=== PATIENT | female | born 1970 | race Caucasian/White ===

== ENCOUNTER 2018-07-10 20:32 | Emergency (ER) | payer BC ==
--- OUTSIDE RECORDS SUMMARY | 2018-07-10 20:44 | XMS REPORT | Continuity of Care Document ---
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 Payers Date Identification Numbers Payment Provider Subscriber Policy Number: [id number] [facility] Oswaldo Back PayID: [id number] [address] [address] [place] [address] Advance Directives Description No Information Available Problems Date Description Provider Status Onset: 04/27/2010 Pure hypercholesterolemia Jc Rollins MD Active Onset: 04/01/2009 Intrinsic asthma without status Jc Rollins MD Active asthmaticus Onset: 03/17/2007 Acne Jc Rollins MD Active Onset: 09/10/2005 Allergic rhinitis Jc Rollins MD Active Onset: 02/29/2016 Pure hypercholesterolemia Jc Rollins MD Active Onset: 02/29/2016 Mild intermittent asthma Jc Rollins MD Active Onset: 02/29/2016 Fibromyalgia Jc Rollins MD Active Onset: 02/29/2016 Gastroesophageal reflux disease Jc Rollins MD Active Onset: 03/01/2017 Raynaud's disease Jc Rollins MD Active Family History Date Family Member(s) Observation Comments Father Hypercholesterolemia Father Hypertension Father Obesity Father Melanoma Father BCC Mother Hypercholesterolemia Mother Hypertension Mother Obesity Mother COPD Former smoker First Brother [place] SMALL [place] 31 Social History Type Date Description Comments Sex Unknown Marital Status 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 rash 04/27/2010 Doxycycline N/V Active N/V 09/19/2004 Erythromycin Active GI 09/19/2004 Hydrocodone Active Medications Medication Date Status Form Strength Qnty SIG Indications Ordering Provider Sulfamethoxazole 06/24 Active Tablets 800-160mg 20tab 1 by mouth J06.9 Digiovann /Trimethoprim /2018 s every 12 a, hours for Marylou, 10 days RIVET STICKER Advair HFA 04/23 Active Aerosol 115-21mcg 12uni inhale 2 J45.20 Digiovann /2017 /Act ts puffs twice a, a day Rinse Yael Greene After MD Use Nifedipine ER 03/01 Active Tablets ER 30mg 30tab 1 Pill By I73.00 Digiovann 24HR s Mouth Each Shellie montez, During winter Loratadine 03/01 Active Capsules 10mg OTC 1 by mouth J30.9 Digiovann every day Jc montez MD Azelastine HCL 10/19 Active Solution 0.1% 3unit 2 sprays J30.9 Digiovann (Nasal) s each a, nostril Jc, twice a day Pro HFWesley 11/17 Active Aerosol 108(90Bas 1unit 2 puffs J45.20 Digiovann e) s every 3 a, mcg/Act hours as reese Greene for MD asthma Fluticasone 05/24 Active Suspension 50mcg/Act 16uni 1 spray in J30.9 Digiovann Propionate ts each nare a, twice a day MD Jc Acidophilus 11/17 Active Capsules OTC 4-5 qd as Digiovann High-Potency directed Jc montez MD Naproxen 04/05 Active Tablets 500mg 180ta take 1 M79.7 Digiovann bs tablet by a, mouth twice Jc, a day as needed for fibromyalgi a - take w/ food Cyclobenzaprine 09/28 Active Tablets 10mg 90tab take 1 M79.7 Digiovann HCL /2009 s tablet by a, mouth every Jc, evening as MD needed for muscle tightness Zantac 150 00/00 Active Tablets 150mg 1 by mouth R12 Unknown Maximum Strength /0000 twice a day K21.9 Levofloxacin Hx Tablets 250mg 10tabs 1 pill by mouth J01.90 Digiovann 018 - once daily for a, 10 days Jc, 018 Fluconazole Hx Tablets 150mg 2tabs 1 pill once a Digiovann 018 - day for 2 days a, Jc, 019 Cefdinir Hx Capsules 300mg 20caps 1 Pill Twice A Digiovann 018 - Day For 10 Days a, Jc, 018 Prednisone Hx Tablets 20mg 10tabs 1 pill by mouth R05 Digiovann 018 - twice a day with a, food for 5 days Jc, 018 Sulfamethoxazole/Tri Hx Tablets 800-160 14tabs 1 by mouth twice J01.90 Digiovann methoprim DS 018 - mg a day for 7 days a, Jc, 018 Fluconazole Hx Tablets 150mg 1tabs 1 tablet by J01.90 Digiovann 018 - mouth x 1 a, Jc, 018 Sulfamethoxazole/Tri Hx Tablets 800-160 20tabs 1 by mouth twice Digiovann methoprim DS 018 - mg a day for 10 a, days Jc, 018 Fluconazole Hx Tablets 150mg 1tabs 1 pill by mouth Digiovann 018 - once a, Jc, 018 Sulfamethoxazole/Tri Hx Tablets 800-160 20tabs 1 by mouth twice Digiovann methoprim DS 017 - mg a day for 10 a, days Jc, 017 Cefuroxime Axetil Hx Tablets 250mg 20tabs 1 pill by mouth J01.90 Digiovann 017 - twice a day a, for 10 days Marita Greene MD Fluconazole Hx Tablets 150mg 2tabs 1 pill by mouth J01.90 Digiovann 017 - once as a, directed, repeat Jc, 017 as needed for MD yeast symtoms Azithromycin Hx Tablets 250mg 6tabs 2 pills by mouth J01.90 Digiovann 016 - day 1, then 1 a, pill once daily JcCelestine granado for 4 more days (take w/ food) Sulfamethoxazole/Tri Hx Tablets 800-160 20tabs 1 by mouth twice N30.00 Digiovann methoprim DS 015 - mg a day for 10 a, days Frantz Greene MD Fluconazole Hx Tablets 150mg 2tabs 1 pill once by Digiovann 015 - mouth for yeast a, infection Frantz Greene MD Shireen Allergy Hx Tablets 180mg 30tabs 1 by mouth qod 477.9 Digiovann 015 - a, JcCelestine granado MD Tagamet HB Hx Tablets 200mg OTC 1 by mouth every 787.1 Digiovann 015 - day a, Nkechi Greene MD K21.9 Fluconazole 09/10/2014 - Hx Tablets 100mg 10tabs 1 Pill Once A Digiovanna, 09/20/2014 Day By Mouth MD Jc For 10 Days Levofloxacin 07/27/2014 - Hx Tablets 500mg 10tabs 1 by mouth 46 Digiovanna, 08/06/2014 daily for 10 1. Marylou, RIVET STICKER days 9 Fluconazole 07/27/2014 - Hx Tablets 150mg 1tabs 1 by mouth Digiovanna, 07/28/2014 one time Marylou, RIVET STICKER Levofloxacin 07/12/2014 - Hx Tablets 500mg 10tabs 1 by mouth 46 Digiovanna, 07/22/2014 daily for 10 1. Marylou, RIVET STICKER days 9 Fluconazole 07/12/2014 - Hx Tablets 150mg 1tabs 1 by mouth Digiovanna, 07/19/2014 one time Marylou, MARJORIE Nifedipine ER 05/24/2014 - Hx Tablets ER 30mg 30tabs 1 Pill By 44 Digiovanna, 08/18/2013 24HR Mouth Each 3. MD Shellie Greene During 0 Winter Months Loratadine 11/16/2013 - Hx Tablets 10mg 1 by mouth 47 Digiovanna, 02/29/2016 qod as needed 7. Jc Reed MD allergies 9 Astelin 06/08/2011 - Hx Solution 137mcg/ 3Month use 2 sprays J3 Digiovanna, 10/19/2016 Ross twice a day 0. MD Jc into each 9 nostril if needed for allergies Ziana 03/13/2011 - Hx Gel 1.2-0.0 Tangoren, 07/12/2014 25% MD Maryam Hydrocortisone 06/14/2009 - Hx Cream 2.5% 1Tube Apply pr qid Digiovanna, 07/12/2014 prn Jc Reed MD hemorrhoids Lactinex - Hx Tablets 90units 1 PO qd Digiovanna, Repack 02/17/2014 Jc Reed MD Claritin - Hx Capsules 10mg OTC 1 by mouth J3 Unknown 03/01/2017 every day 0. 9 Immunizations CPT Code Status Date Vaccine Lot # [id number] Given 03/19/2018 Tdap (Adacel) Ages 7 And Above Only [id number] Given 02/19/2018 Afluria Imunization 99673 Given 01/31/2008 Tetanus And Diptheria Toxoids For Adult Use-preservative free 77590 Given 10/30/1996 Tetanus And Diptheria Toxoids For Adult Use-preservative free 76960 Given 06/17/1981 Tetanus And Diptheria Toxoids For Adult Use-preservative free Vital Signs Date Vital Result Comment 06/24/2018 1:10pm Body Temperature 98.8 F tympanic Weight 175.00 lb Heart Rate 84 /min BP Systolic 130 mmHg BP Diastolic 70 mmHg Respiratory Rate 18 /min Height 64.5 inches 5'4.50" O2 % BldC Oximetry 100 % Room Air BMI (Body Mass Index) 29.6 kg/m2 04/23/2018 9:42am Weight 177.00 lb With Shoes Heart Rate 82 /min BP Systolic 120 mmHg BP Diastolic 80 mmHg 03/19/2018 12:58pm Weight 171.00 lb Heart Rate 76 /min BP Systolic 120 mmHg BP Diastolic 80 mmHg Respiratory Rate 18 /min Height 64.5 inches 5'4.50" O2 % BldC Oximetry 97 % rest O2 Saturation Level with Exercise 96 % walking BMI (Body Mass Index) 28.9 kg/m2 02/20/2018 1:37pm Weight 166.00 lb Heart Rate 80 /min BP Systolic 142 mmHg BP Diastolic 90 mmHg BP Systolic Recheck 134 mmHg BP Diastolic Recheck 86 mmHg Respiratory Rate 18 /min Height 64.5 inches 5'4.50" BMI (Body Mass Index) 28.1 kg/m2 03/01/2017 8:07am Weight 160.00 lb Heart Rate 72 /min BP Systolic 120 mmHg BP Diastolic 76 mmHg Respiratory Rate 18 /min Height 64.5 inches 5'4.50" BMI (Body Mass Index) 27.0 kg/m2 02/29/2016 8:23am Weight 158.00 lb Heart Rate 74 /min BP Systolic 120 mmHg BP Diastolic 80 mmHg Respiratory Rate 18 /min Height 64 inches 5'4" BMI (Body Mass Index) 27.1 kg/m2 03/01/2015 4:12pm Body Temperature 98.8 F Weight 162.00 lb Heart Rate 68 /min BP Systolic 122 mmHg BP Diastolic 80 mmHg Respiratory Rate 18 /min Height 64 inches 5'4" BMI (Body Mass Index) 27.8 kg/m2 11/17/2014 8:20am Weight 173.00 lb Heart Rate 66 /min BP Systolic 134 mmHg R/Reg BP Diastolic 84 mmHg R/Reg BP Systolic Recheck 118 mmHg L at rest BP Diastolic Recheck 72 mmHg L at rest Respiratory Rate 16 /min Height 64 inches 5'4" BMI (Body Mass Index) 29.7 kg/m2 07/12/2014 4:14pm Body Temperature 98.8 F Weight 174.25 lb Heart Rate 76 /min BP Systolic 136 mmHg BP Diastolic 74 mmHg Respiratory Rate 18 /min O2 % BldC Oximetry 100 % Ra 11/16/2013 8:21am BP Systolic 118 mmHg L at rest BP Diastolic 70 mmHg L at rest 11/16/2013 8:21am Weight 170.00 lb Heart Rate 84 /min BP Systolic 138 mmHg R/Reg BP Diastolic 82 mmHg R/Reg Respiratory Rate 19 /min Height 64.25 inches 5'4.25" Results Test Date Facility Test Result H/L Range Note Lipid 03/19/2018 [facility] Cholesterol 215 mg/dL High 50-199 Triglycerides 96 mg/dL 30-200 HDL 67 mg/dL 35-85 1 Chol/ HDL Ratio 3.2 ratio Low 3.7-5.6 VLDL 19 mg/dL 2-29 LDL (Calc) 129 mg/dL High 20-99 2 Comprehensive Met Panel-[facility]CMG 03/19/2018 [facility] Sodium 131 mmol/L Low 135 -146 3 Potassium 4.5 mmol/L 3.5-5.2 Chloride# 97 mmol/L 97-110 4 Carbon Dioxide 26 mmol/L 24-34 Glucose 87 mg/dL 70-105 BUN 14 mg/dL 6-26 Creatinine 0.6 mg/dL 0.5-1.4 Calcium 9.3 mg/dL 8.5-10.2 Total Protein 6.3 g/dL 6.0-8.0 Albumin 4.3 g/dL 3.6-4.9 Globulin 2.0 g/dL 2.0-3.5 A/G Ratio 2.2 Ratio 1.0-2.2 Total Bilirubin 0.7 mg/dL 0.1-1.3 Alkaline Phosphatase 52 U/L 24-140 Alt 14 U/L 3-42 Ast 15 U/L 8-42 Karen Egfr >60 >60 5 Non Karen Egfr >60 >60 6 Anion Gap 8 mmol/L 5-15 7 CBC with Auto Diff-fcmg 03/19/2018 [facility] WBC 5.5 K/uL 4.1-11.0 RBC 4.67 M/uL 4.00-5.40 Hemoglobin 13.7 gm/dL 12.0-16.0 Hematocrit 40.7 % 36.0-47.0 MCV 87.0 fL 80.0-97.0 MCH 29.4 pg 27.0-32.0 MCHC 33.8 g/dL 32.0-36.0 RDW 14.6 % High 11.5-14.5 PLT Count 391 K/ul 140-400 MPV 6.6 FL Low 7.1-10.7 Neutrophil 60.8 % 35.0-75.0 Lymphocyte 25.7 % 16.0-52.0 Monocyte 7.2 % 2.0-10.0 Eosinophil 5.4 % High 0.0-5.0 Basophil 0.9 % 0.0-4.0 Abs Neutrophils 3.3 K/uL 2.1-8.0 Abs Lymphocytes 1.4 K/uL 0.8-5.5 Abs Monocytes 0.4 K/uL 0.1-1.0 Abs Eosinophils 0.3 K/uL 0.0-0.5 Abs Basophils 0.1 K/uL 0.0-0.3 Laboratory test finding 02/20/2018 [facility] D-Dimer,Sensitive 0.30 mg/L ( <0.50) 8 Comprehensive Met 03/01/2017 [facility] Sodium 142 mmol/L 135-146 9 Panel-FCMG Potassium 4.2 mmol/L 3.5-5.2 Chloride# 107 mmol/L 97-110 10 Carbon Dioxide 28 mmol/L 24-34 Glucose 82 mg/dL 70-105 Creatinine 0.7 mg/dL 0.5-1.4 Calcium 9.3 mg/dL 8.5-10.2 Total Protein 6.5 g/dL 6.0-8.0 Albumin 4.2 g/dL 3.6-4.9 Globulin 2.3 g/dL 2.0-3.5 A/G Ratio 1.8 Ratio 1.0-2.2 Total Bilirubin 0.4 mg/dL 0.1-1.3 Alkaline Phosphatase 49 U/L 24-140 Alt 14 U/L 3-42 Ast 16 U/L 8-42 Karen Egfr >60 >60 11 Non Karen Egfr >60 >60 12 Anion Gap 7 mmol/L 7-16 13 BUN 11 mg/dL 6-26 Lipid 03/01/2017 [facility] Cholesterol 169 mg/dL 50-199 Triglycerides 85 mg/dL 30-200 HDL 59 mg/dL 35-85 14 Chol/ HDL Ratio 2.9 ratio Low 3.7-5.6 VLDL 17 mg/dL 2-29 LDL (Calc) 93 mg/dL 20-99 15 CBC With Auto Diff 03/01/2017 [facility] WBC 5.8 K/uL 4.1-11.0 RBC 4.34 M/uL 4.00-5.40 Hemoglobin 13.2 gm/dL 12.0-16.0 Hematocrit 38.8 % 36.0-47.0 MCV 89.3 fL 80.0-97.0 MCH 30.5 pg 27.0-32.0 MCHC 34.1 g/dL 32.0-36.0 RDW 14.4 % 11.5-14.5 PLT Count 396 K/ul 140-400 MPV 6.5 FL Low 7.1-10.7 Neutrophil 54.8 % 35.0-75.0 Lymphocyte 31.4 % 16.0-52.0 Monocyte 6.9 % 2.0-10.0 Eosinophil 5.8 % High 0.0-5.0 Basophil 1.1 % 0.0-4.0 Abs Neutrophils 3.2 K/uL 2.1-8.0 Abs Lymphocytes 1.8 K/uL 0.8-5.5 Abs Monocytes 0.4 K/uL 0.1-1.0 Abs Eosinophils 0.3 K/uL 0.0-0.5 Abs Basophils 0.1 K/uL 0.0-0.3 Lipid Treatment 02/29/2016 [facility] Cholesterol 172 mg/dL 50-199 Triglycerides 76 mg/dL 30-200 HDL 53 mg/dL 35-85 16 Chol/ HDL Ratio 3.2 ratio Low 3.7-5.6 VLDL 15 mg/dL 2-29 LDL (Calc) 104 mg/dL High 20-99 17 Alt 14 U/L 3-42 Ast 16 U/L 8-42 CBC With Auto Diff 02/29/2016 [facility] WBC 4.9 K/uL 4.1-11.0 RBC 4.41 M/uL 4.00-5.40 Hemoglobin 13.5 gm/dL 12.0-16.0 Hematocrit 39.0 % 36.0-47.0 MCV 88.5 fL 80.0-97.0 MCH 30.7 pg 27.0-32.0 MCHC 34.7 g/dL 32.0-36.0 RDW 13.8 % 11.5-14.5 PLT Count 365 K/ul 140-400 Neutrophil 50.6 % 35.0-75.0 Lymphocyte 33.9 % 16.0-52.0 Monocyte 9.6 % 2.0-10.0 Eosinophil 5.0 % 0.0-5.0 Basophil 0.9 % 0.0-4.0 Abs Neutrophils 2.5 K/uL 2.1-8.0 Abs Lymphocytes 1.7 K/uL 0.8-5.5 Abs Monocytes 0.5 K/uL 0.1-1.0 Abs Eosinophils 0.2 K/uL 0.0-0.5 Abs Basophils 0.0 K/uL 0.0-0.3 Basic (BMP) 02/29/2016 [facility] Sodium 135 mmol/L 134-142 Potassium 4.5 mmol/L 3.5-5.2 Chloride 104 mmol/L 97-109 Carbon Dioxide 29 mmol/L 24-34 Glucose 82 mg/dL 70-105 BUN 13 mg/dL 6-26 Creatinine 0.7 mg/dL 0.5-1.4 Calcium 9.5 mg/dL 8.5-10.2 Anion Gap 7 mmol/L 6-14 Non Karen Egfr >60 >60 18 Karen Egfr >60 >60 19 Laboratory test 03/01/2015 [facility] Urine Culture Microbiology res 20 finding <SEE NOTE> Affirm 03/01/2015 [facility] Trichomonas Negative Negative Vaginalis Gardnerella Vaginalis Negative Negative Jenn Species Negative Negative Laboratory test finding 11/16/2013 N2N/CCD Import % Baso. 1.3 % 0.0-2.0 % Eos. 3.5 % 0.0-4.0 % Lymph 30 % 20-44 % [place] 8.9 % 2.0-10.0 % Matt 57 % 50-70 A/G Ratio 1.6 ratio 1.6-2.2 Absolute Baso. 0.1 K/ul 0.0-0.3 Absolute Eos. 0.2 K/ul 0.0-0.5 Absolute Lymph. 1.5 K/ul 0.8-4.8 Absolute [place]. 0.5 K/ul 0.1-1.0 Absolute Matt. 2.89 K/ul 2.05-7.63 Albumin 4.2 g/dL 3.5-5.0 Alk. Phos. 49.0 U/L 30.0-126.0 Alt 22.0 U/L 9.0-52.0 Anion Gap 9.0 mmol/L Low 10.0-20.0 Ast 19.0 U/L 14.0-36.0 BUN 15.0 mg/dL 7.0-18.0 BUN/Creat Ratio 21.4 ratio High 12.0-20.0 Calcium 9.0 mg/dL 8.7-10.5 Chloride 107.0 mmol/L 98.0-107.0 Co2 23.0 mmol/L 22.0-30.0 Creatinine-Serum 0.7 mg/dL 0.7-1.2 Globulin 2.6 g/dL Low 2.7-4.3 Glucose 89.0 mg/dL 75.0-110.0 HCT 40.5 % 37.0-51.0 HGB 13.6 Gm/dl 12.0-16.0 MCH 30.0 pg 26.0-32.0 MCHC 33.6 g/dL 31.0-36.0 MCV 89.3 Fl 80.0-97.0 MPV 5.1 fL Low 6.0-10.0 PLT 341 K/ul 140-440 Potasium 4.2 mmol/L 3.6-5.0 RBC 4.5 M/ul 4.2-6.3 RDW 12.9 % 11.5-14.5 Sodium 139.0 mmil/L 137.0-145.0 TSH 1.70 uIU/ml 0.50-6.00 Total Bilirubin 0.8 mg/dL 0.2-1.3 Total Protein 6.8 g/dL 6.3-8.2 WBC 5.1 K/ul 4.1-10.9 eGFR 95.8 mi/minper1.73 21 Lipid Panel 11/16/2013 N2N/CCD Import Chol/HDL Ratio 4.4 ratio Cholesterol 201.0 mg/dL High 50.0-199.0 HDL 46.0 mg/dL 29.0-86.0 LDL, Calculated 131.0 mg/dL High 20.0-129.0 Triglycerides 120.0 mg/dL 30.0-249.0 vLDL 24.0 ng/dL 1 Per NCEP ATP III Guidelines: Results lower than 40 mg/dL are suggestive of increased risk for coronary artery disease. Results > or=to 60 mg/dL are considered a negative risk factor. 2 Per NCEP ATP III Guidelines: Normal Population <130 Patients with medical conditions: CHD/DM Optimal: <100 Borderline high: 130-159 High: 160-189 Very high: >189 3 Updated reference range on new analyzer 4 Updated reference range on new analyzer 5 Concerning GFR Guidelines for Americans: Normal function or mild renal disease, if clinically at risk: >/=60 mL/min Moderately decreased: 30-59 Severely decreased: 15-29 Renal failure: <15 6 Concerning GFR Guidelines: Normal function or mild renal disease, if clinically at risk: >/=60 mL/min Moderately decreased: 30-59 Severely decreased: 15-29 Renal failure: <15 Glomerular Filtration Rate (GFR) is estimated based on the MDRD equation, which assumes a steady state for creatinine as recommended by the National Kidney Disease Education Program in conjunction with the National Institutes of Health and the National Kidney Foundation. Clinical conditions in which it may be necessary to measure GFR by using clearance methods include extremes of age and body size, severe malnutrition or obesity, diseases of skeletal muscle, paraplegia or quadriplegia, vegetarian diet, rapidly changing kidney function, and calculation of the dose of potentially toxic drugs that are excreted by the kidneys. 7 Updated Reference Range 8 Unless otherwise specified, testing performed by [facility] [address] [place] [id number] 9 Updated reference range on new analyzer 10 Updated reference range on new analyzer 11 Concerning GFR Guidelines for Americans: Normal function or mild renal disease, if clinically at risk: >/=60 mL/min Moderately decreased: 30-59 Severely decreased: 15-29 Renal failure: <15 12 Concerning GFR Guidelines: Normal function or mild renal disease, if clinically at risk: >/=60 mL/min Moderately decreased: 30-59 Severely decreased: 15-29 Renal failure: <15 Glomerular Filtration Rate (GFR) is estimated based on the MDRD equation, which assumes a steady state for creatinine as recommended by the National Kidney Disease Education Program in conjunction with the National Institutes of Health and the National Kidney Foundation. Clinical conditions in which it may be necessary to measure GFR by using clearance methods include extremes of age and body size, severe malnutrition or obesity, diseases of skeletal muscle, paraplegia or quadriplegia, vegetarian diet, rapidly changing kidney function, and calculation of the dose of potentially toxic drugs that are excreted by the kidneys. 13 Updated reference range on new analyzer 14 Per NCEP ATP III Guidelines: Results lower than 40 mg/dL are suggestive of increased risk for coronary artery disease. Results > or=to 60 mg/dL are considered a negative risk factor. 15 Per NCEP ATP III Guidelines: Normal Population <130 Patients with medical conditions: CHD/DM Optimal: <100 Borderline high: 130-159 High: 160-189 Very high: >189 16 Per NCEP ATP III Guidelines: Results lower than 40 mg/dL are suggestive of increased risk for coronary artery disease. Results > or=to 60 mg/dL are considered a negative risk factor. 17 Per NCEP ATP III Guidelines: Normal Population <130 Patients with medical conditions: CHD/DM Optimal: <100 Borderline high: 130-159 High: 160-189 Very high: >189 18 Concerning GFR Guidelines: Normal function or mild renal disease, if clinically at risk: >/=60 mL/min Moderately decreased: 30-59 Severely decreased: 15-29 Renal failure: <15 Glomerular Filtration Rate (GFR) is estimated based on the MDRD equation, which assumes a steady state for creatinine as recommended by the National Kidney Disease Education Program in conjunction with the National Institutes of Health and the National Kidney Foundation. Clinical conditions in which it may be necessary to measure GFR by using clearance methods include extremes of age and body size, severe malnutrition or obesity, diseases of skeletal muscle, paraplegia or quadriplegia, vegetarian diet, rapidly changing kidney function, and calculation of the dose of potentially toxic drugs that are excreted by the kidneys. 19 Concerning GFR Guidelines for Americans: Normal function or mild renal disease, if clinically at risk: >/=60 mL/min Moderately decreased: 30-59 Severely decreased: 15-29 Renal failure: <15 20 Microbiology results SOURCE MIDU FINAL RESULT No growth 21 For -Welsh patients multiply result by 1.180 Procedures Date Code Description Status 06/24/2018 43386 Measure Blood Oxygen Level Single Determination Completed 03/20/2018 39017023 Mammogram Completed 07/12/2014 80698 Measure Blood Oxygen Level Single Determination Completed Encounters Type Date Location Provider Dx Diagnosis Office Visit 04/23/2018 Derek Posadas45.20 Mild intermittent 9:45a MD Jc asthma, uncomplicated J01.90 Acute sinusitis, unspecified Office Visit 03/19/2018 1:00p Jc Posadas MD Z23 Encounter for immunization R05 Cough M25.511 Pain in RIGHT shoulder Z79.899 Other long-term (current) drug therapy E78.00 Pure hypercholesterolemia, unspecified J45.20 Mild intermittent asthma, uncomplicated K21.9 Gastro-esophageal reflux disease without esophagitis M79.7 Fibromyalgia J30.9 Allergic rhinitis, unspecified I73.00 Raynaud's syndrome without gangrene J01.90 Acute sinusitis, unspecified Z00.00 Encntr for general adult medical exam w/o abnormal findings Z68.28 Body mass index (BMI) 28.0-28.9, adult Office Visit 02/20/2018 1:30p [facility] Iman Miller PA R03.0 Elevated blood-pressure reading, w/o diagnosis of htn J01.90 Acute sinusitis, unspecified R06.02 Shortness of breath Z68.28 Body mass index (BMI) 28.0-28.9, adult Office Visit 03/01/2017 8:15a [facility] Ria, E78.00 Pure hypercholesterolemia, MD Jc unspecified J45.20 Mild intermittent asthma, uncomplicated J30.9 Allergic rhinitis, unspecified K21.9 Gastro-esophageal reflux disease without esophagitis I73.00 Raynaud's syndrome without gangrene J01.90 Acute sinusitis, unspecified Z79.899 Other long-term (current) drug therapy Office Visit 02/29/2016 8:15a [facility] Jc Rollins J01.90 Acute sinusursula, unspecified E78.00 Pure hypercholesterolemia, unspecified J45.20 Mild intermittent asthma, uncomplicated J30.9 Allergic rhinitis, unspecified M79.7 Fibromyalgia Z79.899 Other computer terminal operator (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) drug 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 M79.675 Pain in LEFT toe(s) K21.9 Gastro-esophageal reflux disease without esophagitis Office Visit 03/01/2015 4:00p [facility] Marylou Rollins NP R30.0 Dysuria N76.0 Acute vaginitis Office Visit 11/17/2014 8:15a [facility] Ria, 272.0 Hypercholesterolemia Pure MD Jc 493.10 Asthma Intrinsic Unspecified 477.9 Rhinitis Allergic Cause Unspec 706.1 Acne Other 278.00 Obesity Unspec 729.1 Myalgia & Myositis Unspec Office Visit 07/12/2014 4:00p [facility] Marylou Rollins, 461.9 Sinusitis Acute 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 Mucinex 1200mg every 12 hours until symptoms resolved.Humidifier or steam therapy may be helpful. Sudafed or Afrin for decongestion and Delsym as cough suppressant.Only fill Bactrim Rx if no improvement in 5-7 days or any fever, general illness or purulent secretions. Eat yogurt or take probiotic daily if taking any antibiotic.Follow up:PRN for fever >101 or no improvement in 1 week.
[2018-07-10 20:57] VITALS: BP 155/81
[2018-07-10] MEDS ORDERED: Acyclovir* 200 MG CAP PO ONE (21:15)
--- NOTE | 2018-07-10 21:18 | UC ---
Skin Complaint HPI - HPI Summary HPI Summary: patient developed a pain that is sharp tingling under her right arm and toward her scapula, there is a faint erythemic rash noted, no blisters. the area is painful, pain radiates up into the shoulder - History of Current Complaint Chief Complaint: UCSkin Time Seen by Provider: 07/10/18 20:51 Stated Complaint: POSS SHINGLES Hx Obtained From: Patient Hx Last Menstrual Period: 06/25/18 ?: No Onset/Duration: Sudden Onset, Lasting Days Skin Exposure Onset/Duration: Days Ago Timing: Constant Onset Severity: Severe Current Severity: Severe Pain Intensity: 7 Location: Discrete Character: Pain, Redness Aggravating Factor(s): Touch Alleviating Factor(s): Nothing - Allergy/Home Medications Allergies/Adverse Reactions: Allergies Allergy/AdvReac Type Severity Reaction Status Date / Time erythromycin base Allergy GI Upset Verified 07/10/18 20:55 Penicillins Allergy Rash Verified 07/10/18 20:55 Home Medications: Home Medications Fexofenadine/Pseudoephedrine [Shireen-D 24 Hour Tablet] 1 each PO DAILY [History Confirmed 07/10/18] Naproxen [Naprosyn 500 mg tab] 500 mg PO BEDTIME 07/10/18 [History Confirmed 11/21] PMH/Surg Hx/FS Hx/Imm Hx Previously Healthy: Yes - Surgical History Surgical History: Yes Surgery Procedure, Year, and Place: T & A;. EAR TUBES;. 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; - Family History Known Family History: Positive: Hypertension - Social History Alcohol Use: Rare Substance Use Type: None Smoking Status (MU): Never Smoked Tobacco Review of Systems All Other Systems Reviewed And Are Negative: Yes Constitutional: Positive: Negative Skin: Positive: Rash Eyes: Positive: Negative ENT: Positive: Negative Respiratory: Positive: Negative Cardiovascular: Positive: Negative Gastrointestinal: Positive: Negative Genitourinary: Positive: Negative Motor: Positive: Negative Neurovascular: Positive: Negative Musculoskeletal: Positive: Negative Neurological: Positive: Negative Psychological: Positive: Negative Is Patient Immunocompromised?: No Physical Exam Triage Information Reviewed: Yes Appearance: Well-Appearing, Well-Nourished, Pain Distress Vital Signs: Initial Vital Signs Temp 97.4 F 07/10/18 20:52 Pulse 103 07/10/18 20:52 Resp 15 07/10/18 20:52 BP 155/81 07/10/18 20:52 Pulse Ox 100 07/10/18 20:52 Vital Signs Reviewed: Yes Eye Exam: Normal ENT Exam: Normal Dental Exam: Normal Neck exam: Normal Respiratory Exam: Normal Cardiovascular Exam: Normal Abdominal Exam: Normal Bowel Sounds: Positive: Present Musculoskeletal Exam: Normal Musculoskeletal: Positive: Strength Intact, ROM Intact, No Edema Neurological Exam: Normal Psychological Exam: Normal Skin: Positive: Rashes - faint erythemic rash pattern from right scapula to under arm Course/Dx - Course Course Of Treatment: hx obtained, exam performed ,meds reviewed, treated for possible shingles - Differential Diagnoses - Skin Complaint Differential Diagnoses: Cellulitis, Contact Dermatitis, Eczema, Varicella Zoster - Diagnoses Provider Diagnosis: Shingles Discharge - Sign-Out/Discharge Documenting (check all that apply): Patient Departure All imaging exams completed and their final reports reviewed: No Studies - Discharge Plan Condition: Stable Disposition: HOME Prescriptions: ValACYclovir (*) [Valtrex 1 GM(*)] 1 gm PO BID #14 tab Patient Education Materials: Shingles (ED) Referrals: Jc Rollins MD [Primary Care Provider] - Additional Instructions: 1. take the medication as prescribed. 2. If rash does break out, keep it covered. 3. Follow up as needed. - Billing Disposition and Condition Condition: STABLE Disposition: Home
== END 2018-07-10 21:24 | disposition home or self-care (01) ==
LOC: UCCORT 20:32
DX: B02.9 Zoster without complications (principal); Z88.1 Allergy status to other antibiotic agents; Z88.0 Allergy status to penicillin
CPT/HCPCS: 99212; A9270-GY; G0463

== ENCOUNTER 2018-08-10 15:30 | Emergency (ER) | payer BC ==
--- OUTSIDE RECORDS SUMMARY | 2018-08-10 15:40 | XMS REPORT | Continuity of Care Document ---
:1970 External Reference #:[id number] Author Name Iman Miller PA Address [address] [place] [address] Care Team Providers Name Role Phone Jc Rollins MD Care Team Information Digital Associate Unavailable Payers Date Identification Numbers Payment Provider Subscriber Policy Number: [id number] [facility] Oswaldo Back PayID: [id number] [address] [address] [place] [address] Advance Directives Description No Information Available Problems [...] Obesity Mother COPD Former smoker First Brother RI SMALL RI 31 Social History Type Date Description Comments Sex Unknown Marital Status 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 [employer] ETOH Use Rarely consumes alcohol Tobacco Use [...] Form Strength Qnty SIG Indications Ordering Provider Clarithromycin 08/08 Active Tablets 500mg 20tab 1 pill by J01.90 Pitts, /2018 s mouth twice Wiliam, daily for DO 10 days Advair HFA 04/23 Active Aerosol 115-21mcg 12uni inhale 2 J45.20 Digiovann /2018 /Act ts puffs twice a, a day Rinse Yael Greene After MD Use Loratadine 03/01 Active Capsules 10mg OTC 1 by mouth J30.9 Digiovann /2016 every day Jc montez MD Azelastine HCL 10/19 Active Solution 0.1% 3unit 2 sprays J30.9 Digiovann (Nasal) /2016 s each a, nostril Jc, twice a day Pro HFWesley 11/17 Active Aerosol 108(90Bas 1unit 2 puffs J45.20 Digiovann /2014 e) s every 3 a, mcg/Act hours as Jc, needed for MD asthma Fluticasone 05/24 Active Suspension 50mcg/Act 16uni 1 spray in J30.9 Digiovann Propionate ts each nare a, twice a day MD Jc Acidophilus 11/17 Active Capsules OTC 4-5 qd as Digiovann High-Potency /2011 directed Jc montez MD Naproxen 04/05 Active Tablets 500mg 180ta take 1 M79.7 Digiovann /2010 bs tablet by a, mouth twice Jc, a day as MD needed for fibromyalgi a - take w/ food Cyclobenzaprine 09/28 Active Tablets 10mg 90tab take 1 M79.7 Digiovann HCL /2008 s tablet by a, mouth every Jc, evening as MD needed for muscle tightness Zantac 150 00/00 Active Tablets 150mg 1 by mouth R12 Unknown Maximum Strength /0000 twice a day K21.9 Sulfamethoxazole/Tr Hx Tablets 800-16 20tabs 1 by mouth J06.9 Digiovan imethoprim DS 019 - 0mg every 12 hours na, for 10 days Marylou 019 , 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 Levofloxacin Hx Tablets 250mg 10tabs 1 pill by mouth J01.90 Digiovan 018 - once daily for na, 10 days Jc, 018 MD Fluconazole Hx Tablets 150mg 2tabs 1 pill once a Digiovan 018 - day for 2 days na, Jc, 019 MD Cefdinir Hx Capsules 300mg 20caps 1 Pill Twice A Digiovan 018 - Day For 10 Days na, Jc, 018 MD Prednisone Hx Tablets 20mg 10tabs 1 pill by mouth R05 Digiovan 018 - twice a day na, with food for 5 Jc, 018 days MD Sulfamethoxazole/Tr Hx Tablets 800-16 14tabs 1 by mouth J01.90 Digiovan imethoprim DS 018 - 0mg twice a day for na, 7 days Jc, 018 MD Fluconazole Hx Tablets 150mg 1tabs 1 tablet by J01.90 Digiovan 018 - mouth x 1 na, Jc, 018 MD Sulfamethoxazole/Tr Hx Tablets 800-16 20tabs 1 by mouth Digiovan imethoprim DS 018 - 0mg twice a day for na, 10 days Jc, 018 MD Fluconazole Hx Tablets 150mg 1tabs 1 pill by mouth Digiovan 018 - once na, Jc, 018 MD Sulfamethoxazole/Tr Hx Tablets 800-16 20tabs 1 by mouth Digiovan imethoprim DS 017 - 0mg twice a day for na, 10 days Jc, 017 MD Nifedipine ER Hx Tablets ER 30mg 30tabs 1 Pill By Mouth I73.00 Digiovan 017 - 24HR Each Moring na, During Winter Nkechi Greene Months Cefuroxime Axetil Hx Tablets 250mg 20tabs 1 pill by mouth J01.90 Digiocristina 017 - twice a day na, for 10 days Marita Greene MD Fluconazole Hx Tablets 150mg 2tabs 1 pill by mouth J01.90 Digiocristina 017 - once as na, directed, Marita Greene repeat as MD needed for yeast symtoms Azithromycin Hx Tablets 250mg 6tabs 2 pills by J01.90 Digiovan 016 - mouth day 1, na, then 1 pill Celestine Greene once daily for MD 4 more days (take w/ food) Sulfamethoxazole/Tr Hx Tablets 800-16 20tabs 1 by mouth N30.00 Digiovan imethoprim DS 015 - 0mg twice a day for na, 10 days Frantz Greene MD Fluconazole Hx Tablets 150mg 2tabs 1 pill once by Digiovan 015 - mouth for yeast na, infection Frantz Greene MD Shireen Allergy Hx Tablets 180mg 30tabs 1 by mouth qod 477.9 Digiovan 015 - na, Celestine Greene MD Tagamet HB Hx Tablets 200mg OTC 1 by mouth 787.1 Digiovan 015 - every day na, Nkechi Greene MD K21.9 Fluconazole 09/10/2014 - Hx Tablets 100mg 10tabs 1 Pill Once A Digiovanna, 09/20/2014 Day By Mouth MD Jc For 10 Days Levofloxacin 07/27/2014 - Hx Tablets 500mg 10tabs 1 by mouth 46 Digiovanna, 08/06/2014 daily for 10 1. MARJORIE Hickman days 9 Fluconazole 07/27/2014 - Hx Tablets 150mg 1tabs 1 by mouth Digiovanna, 07/28/2014 one time MARJORIE Hickman Levofloxacin 07/12/2014 - Hx Tablets 500mg 10tabs 1 by mouth 46 Digiovanna, 07/22/2014 daily for 10 1. Marylou, MARJORIE days 9 Fluconazole 07/12/2014 - Hx Tablets 150mg 1tabs 1 by mouth Digiovanna, 07/19/2014 one time Marylou, MARJORIE Nifedipine ER 05/24/2014 - Hx Tablets ER 30mg 30tabs 1 Pill By 44 Digiovanna, 08/18/2013 24HR Mouth Each 3. MD Jc Morifederica During 0 Winter Months Loratadine 11/16/2013 - Hx Tablets 10mg 1 by mouth 47 Digiovanna, 02/29/2016 qod as needed 7. Jc Reed MD allergies 9 Astelin 06/08/2011 - Hx Solution 137mcg/ 3Month use 2 sprays J3 Digiovanna, 10/19/2016 [place] twice a day 0. MD Jc into [...] CPT Code Status Date Vaccine Lot # [id number] Given 03/19/2018 Tdap (Adacel) Ages 7 And Above Only [id number] Given 02/19/2018 Afluria Imunization 27547 Given 01/31/2008 Tetanus And Diptheria Toxoids For Adult Use-preservative free 89270 Given 10/30/1996 Tetanus And Diptheria Toxoids For Adult Use-preservative free 15520 Given 06/17/1981 Tetanus And Diptheria Toxoids For Adult Use-preservative free Vital Signs Date Vital Result Comment 08/08/2018 1:08pm Body Temperature 98.5 F Cold Meds This Am Weight 174.00 lb Heart Rate 105 /min BP Systolic 134 mmHg BP Diastolic 70 mmHg Respiratory Rate 18 /min Height 64.5 inches 5'4.50" O2 % BldC Oximetry 100 % BMI (Body Mass Index) 29.4 kg/m2 06/24/2018 1:10pm Body Temperature 98.8 F tympanic [...] Test Result H/L Range Note Lipid 03/19/2018 [facility] Cholesterol 215 mg/dL High 50-199 Triglycerides 96 mg/dL 30-200 HDL 67 mg/dL 35-85 1 Chol/ HDL Ratio 3.2 ratio Low 3.7-5.6 VLDL 19 mg/dL 2-29 LDL (Calc) 129 mg/dL High 20-99 2 Comprehensive Met Panel-FCMG 03/19/2018 [facility] Sodium 131 mmol/L Low 135 -146 3 [...] 5-15 7 CBC with Auto Diff-fcmg 03/19/2018 [facility] WBC 5.5 K/uL 4.1-11.0 RBC 4.67 M/uL [...] 13 BUN 11 mg/dL 6-26 Lipid 03/01/2017 [facility] Cholesterol 169 mg/dL 50-199 Triglycerides 85 mg/dL 30-200 HDL 59 mg/dL 35-85 14 Chol/ HDL Ratio 2.9 ratio Low 3.7-5.6 VLDL 17 mg/dL 2-29 LDL (Calc) 93 mg/dL 20-99 15 CBC With Auto Diff 03/01/2017 [facility] WBC 5.8 K/uL 4.1-11.0 RBC 4.34 M/uL [...] K/uL 0.0-0.5 Abs Basophils 0.1 K/uL 0.0-0.3 Basic (BMP) 02/29/2016 [facility] Sodium 135 mmol/L 134-142 Potassium 4.5 mmol/L 3.5-5.2 Chloride 104 mmol/L 97-109 Carbon Dioxide 29 mmol/L 24-34 Glucose 82 mg/dL 70-105 BUN 13 mg/dL 6-26 Creatinine 0.7 mg/dL 0.5-1.4 Calcium 9.5 mg/dL 8.5-10.2 Anion Gap 7 mmol/L 6-14 Non Karen Egfr >60 >60 16 Karen Egfr >60 >60 17 CBC With Auto Diff 02/29/2016 [facility] WBC 4.9 K/uL 4.1-11.0 RBC 4.41 M/uL [...] K/uL 0.0-0.5 Abs Basophils 0.0 K/uL 0.0-0.3 Lipid Treatment 02/29/2016 [facility] Cholesterol 172 mg/dL 50-199 Triglycerides 76 mg/dL 30-200 HDL 53 mg/dL 35-85 18 Chol/ HDL Ratio 3.2 ratio Low 3.7-5.6 VLDL 15 mg/dL 2-29 LDL (Calc) 104 mg/dL High 20-99 19 Alt 14 U/L 3-42 Ast 16 U/L 8-42 Laboratory test 03/01/2015 [facility] Urine Culture Microbiology res 20 finding <SEE NOTE> Affirm 03/01/2015 [facility] Trichomonas Negative Negative Vaginalis Gardnerella Vaginalis Negative Negative Jenn Species Negative Negative Laboratory test finding 11/16/2013 N2N/CCD Import % Baso. 1.3 % 0.0-2.0 % Eos. 3.5 % 0.0-4.0 % Lymph 30 % 20-44 % Bennett 8.9 % 2.0-10.0 % Matt 57 % 50-70 A/G Ratio 1.6 ratio 1.6-2.2 Absolute Baso. 0.1 K/ul 0.0-0.3 Absolute Eos. 0.2 K/ul 0.0-0.5 Absolute Lymph. 1.5 K/ul 0.8-4.8 Absolute Bennett. 0.5 K/ul 0.1-1.0 Absolute Matt. 2.89 K/ul [...] Unless otherwise specified, testing performed by [facility] [address] [place] [id number] 9 Updated reference range on new analyzer [...] 130-159 High: 160-189 Very high: >189 16 Concerning GFR Guidelines: Normal function or mild [...] drugs that are excreted by the kidneys. 17 Concerning GFR Guidelines for Americans: Normal function or mild renal disease, if clinically at risk: >/=60 mL/min Moderately decreased: 30-59 Severely decreased: 15-29 Renal failure: <15 18 Per NCEP ATP III Guidelines: Results lower than 40 mg/dL are suggestive of increased risk for coronary artery disease. Results > or=to 60 mg/dL are considered a negative risk factor. 19 Per NCEP ATP III Guidelines: Normal Population <130 Patients with medical conditions: CHD/DM Optimal: <100 Borderline high: 130-159 High: 160-189 Very high: >189 20 Microbiology results SOURCE MIDU FINAL RESULT No growth 21 For -[place] patients multiply result by 1.180 Procedures Date Code Description Status 08/08/2018 01513 Measure Blood Oxygen Level Single Determination Completed 06/24/2018 30717 Measure Blood Oxygen Level Single Determination Completed 03/20/2018 56009321 Mammogram Completed 07/12/2014 11200 Measure Blood Oxygen Level Single Determination Completed Encounters Type Date Location Provider Dx Diagnosis Office Visit 06/24/2018 [facility] Digiovanna, J06.9 Acute upper respiratory 1:00p MARJORIE Hickman infection, unspecified Office Visit 04/23/2018 [facility] Ria J45.20 Mild intermittent 9:45a MD Jc asthma, uncomplicated J01.90 Acute sinusitis, unspecified Office Visit 03/19/2018 1:00p [facility] Jc Rollins MD Z23 Encounter for immunization R05 Cough M25.511 Pain in RIGHT shoulder Z79.899 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 E78.00 Pure hypercholesterolemia, unspecified J45.20 Mild intermittent asthma, uncomplicated K21.9 Gastro-esophageal reflux disease without esophagitis M79.7 Fibromyalgia J30.9 Allergic rhinitis, unspecified I73.00 Raynaud's syndrome without gangrene J01.90 Acute sinusitis, unspecified Z00.00 Encntr for general adult medical exam w/o abnormal findings Z68.28 Body mass index (BMI) 28.0-28.9, adult Office Visit 02/20/2018 1:30p [facility] Iman Miller PA R03.0 Elevated blood-pressure reading, w/o diagnosis of htn J01.90 Acute sinusitis, unspecified R06.02 Shortness of breath Z68.28 Body mass index (BMI) 28.0-28.9, adult Office Visit 03/01/2017 8:15a [facility] Ria, E78.00 Pure hypercholesterolemia, MD Jc unspecified J45.20 Mild intermittent asthma, uncomplicated J30.9 Allergic rhinitis, unspecified K21.9 Gastro-esophageal reflux disease without esophagitis I73.00 Raynaud's syndrome without gangrene J01.90 Acute sinusitis, unspecified Z79.899 Other senior living (current) drug therapy Office Visit 02/29/2016 8:15a [facility] Jc Rollins J01.90 Erich miranda MD unspecified E78.00 Pure hypercholesterolemia, unspecified J45.20 Mild intermittent asthma, uncomplicated J30.9 Allergic rhinitis, unspecified M79.7 Fibromyalgia Z79.899 Other senior living (current) drug therapy M79.675 Pain in LEFT toe(s) K21.9 Gastro-esophageal reflux disease without esophagitis Office Visit 03/01/2015 4:00p [facility] Digiovanna, Marylou, 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 ENGINEER R30.0 Dysuria N76.0 Acute vaginitis Office Visit 11/17/2014 8:15a [facility] Ria, 272.0 Hypercholesterolemia Pure MD Jc 493.10 Asthma Intrinsic Unspecified 477.9 Rhinitis Allergic Cause Unspec 706.1 Acne Other 278.00 Obesity Unspec 729.1 Myalgia & Myositis Unspec Office Visit 07/12/2014 4:00p [facility] Marylou Rollins, 461.9 Sinusitis Acute 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 ENGINEER Unspec Plan of Treatment Future Appointment(s):03/23/2019 8:15 am - Jc Rollins MD at [facility]2018 - Iman Miller, PAJ01.90 Acute sinusitis, unspecifiedNew Medication: Clarithromycin 500 mg - 1 pill by mouth twice daily for 10 daysComments:Will treat with biaxinContinue OTC medicationsCall with worsening/persisting symptomsFollow up:PrnM79.10 Myalgia, unspecified siteNew Labs:CBC with Auto Diff -fcmg, Ordered: 08/08/18Comprehensive Met Panel-FCMG, Ordered: 08/08/18Esr-FCMG , Ordered: 08/08/18CRP (C-Reactive), Ordered: 08/08/18CCP Antibody-IgG, Ordered : 08/08/18dsDNA-FCMG, Ordered: 08/08/18Comments:Pt with body aches and fatigue for monthsWill check labs for evalZ13.89 Encounter for screening for other disorderNew Labs:HIV Combo By Eia, Ordered: 08/08/18Comments:Pt would like HIV tmhbasnD40.29 Body mass index (BMI) 29.0-29.9, adult
[2018-08-10 15:54] VITALS: BP 140/93
[2018-08-10] MEDS ORDERED: Ibuprofen TAB* 600 MG PO ONE (15:57)
--- NOTE | 2018-08-10 15:59 | UC ---
FLU HPI - HPI Summary HPI Summary: cough, nasal congestion for past week, seen by PCP on Saturday08/08/18, diagnosed with sinus infection, Prescribed Clarithromycin 500mg BID for 10 days, states feeling worse and increase in cough. - History of Current Complaint Chief Complaint: UCGeneralIllness Stated Complaint: SWEATS,FEVER Time Seen by Provider: 08/10/18 15:54 Hx Obtained From: Patient Hx Last Menstrual Period: 07/24/18 ?: No Onset/Duration: Sudden Onset, Lasting Days Severity Currently: Moderate Severity Initially: Severe Pain Intensity: 8 Associated Signs & Symptoms: Positive: Fever, Myalgia, Sore Throat, Nasal Congestion, Headache - Allergy/Home Medications Allergies/Adverse Reactions: Allergies Allergy/AdvReac Type Severity Reaction Status Date / Time erythromycin base Allergy GI Upset Verified 08/10/18 15:54 Penicillins Allergy Rash Verified 08/10/18 15:54 Home Medications: Home Medications Acetaminophen [Tylenol Extra Strength] 500 mg PO DAILY 08/10/18 [History Confirmed 08/10/18] PMH/Surg Hx/FS Hx/Imm Hx Previously Healthy: Yes - Surgical History Surgical History: Yes Surgery Procedure, Year, and Place: T & A;. EAR TUBES;. 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; - Family History Known Family History: Positive: Hypertension - Social History Alcohol Use: Rare Substance Use Type: None Smoking Status (MU): Never Smoked Tobacco Review of Systems All Other Systems Reviewed And Are Negative: Yes Constitutional: Positive: Fever, Fatigue Skin: Positive: Negative Eyes: Positive: Negative ENT: Positive: Sore Throat, Ear Ache, Nasal Discharge, Sinus Congestion Respiratory: Positive: Cough Cardiovascular: Positive: Negative Gastrointestinal: Positive: Negative Genitourinary: Positive: Negative Motor: Positive: Negative Neurovascular: Positive: Negative Musculoskeletal: Positive: Myalgia Neurological: Positive: Headache Psychological: Positive: Negative Is Patient Immunocompromised?: No Physical Exam Vital Signs: Initial Vital Signs Temp 101.6 F 08/10/18 15:49 Pulse 115 08/10/18 15:49 Resp 18 08/10/18 15:49 BP 140/93 08/10/18 15:49 Pulse Ox 100 08/10/18 15:49 Flu Course/Dx - Course Course Of Treatment: hx obtained, exam performed ,meds reviewed, rapid flu obtained. - Differential Dx/Diagnosis Differential Diagnosis/HQI/PQRI: Bronchitis, Influenza, Upper Respiratory Infection, Other - sinusitis Provider Diagnosis: Influenza A Discharge - Sign-Out/Discharge Documenting (check all that apply): Patient Departure All imaging exams completed and their final reports reviewed: No Studies - Discharge Plan Condition: Stable Disposition: HOME Referrals: Jc Rollins MD [Primary Care Provider] - - Billing Disposition and Condition Condition: STABLE Disposition: Home
[2018-08-10 16:08] LABS: Influenza A Molecular POSITIVE (Negative)
== END 2018-08-10 16:19 | disposition home or self-care (01) ==
LOC: UCCORT 15:30
DX: J10.1 Influenza due to other identified influenza virus with other respiratory manifestations (principal); Z88.1 Allergy status to other antibiotic agents; Z88.0 Allergy status to penicillin
CPT/HCPCS: 99212; A9270-GY; G0463